=== PATIENT | male | born 1980 | race Caucasian/White ===

== ENCOUNTER 2023-05-07 19:39 | Emergency (ER) | payer OTHER ==
[2023-05-07 19:51] VITALS: BP 139/83; RESP 18; TEMP 98; BMI 28.7
[2023-05-07 21:22] LABS: BASO % 1.9 % (0-2.0); EOS % 1.6 % (0-4.5); HEMATOCRIT 41.7 % (35.4-49); HEMOGLOBIN 14.5 GM/dL (11.7-16.9); LYMPH % 52.2 % (8-40); MCH 29.9 pg (25.7-33.7); MCHC 34.8 g/dl (32.0-35.9); MEAN CELL VOLUME 85.8 fl (80-96); MEAN PLT VOLUME 7.5 fl (7.5-11.1); MONO % 11.1 % (3.8-10.2); NEUT % 33.2 % (42.8-82.8); PLATELET COUNT 271 10^3/uL (134-434); RBC 4.86 M/mm3 (4.00-5.60); WHITE BLOOD COUNT 4.3 K/mm3 (4.0-10.0)
[2023-05-07 21:31] LABS: INR 0.99 (0.83-1.09); PROTHROMBIN TIME (PATIENT) 11.5 SEC (9.7-13.0)
[2023-05-07 21:34] LABS: ACTIVATED PTT 28.5 SECONDS (25.2-36.5)
[2023-05-07 21:54] LABS: CALCIUM 8.9 mg/dL (8.5-10.1)
[2023-05-07 21:55] LABS: ALBUMIN 3.8 g/dl (3.4-5.0)
[2023-05-07 21:58] LABS: CREATININE 1.3 mg/dL (0.55-1.3)
[2023-05-07 21:59] LABS: TOT PROT 7.2 g/dl (6.4-8.2)
[2023-05-07 22:00] LABS: BILIRUBIN,TOTAL 0.2 mg/dL (0.2-1)
[2023-05-08 00:28] VITALS: PULSE 58
== END 2023-05-08 00:28 | disposition home or self-care (01) ==
LOC: JER 19:39
DX: R94.31 Abnormal electrocardiogram [ECG] [EKG] (principal)
CPT/HCPCS: 36415; 71046-TC-FY; 80053; 84484; 85025; 85610; 85730; 93005; 93010; 99285-25

== ENCOUNTER 2023-05-15 00:01 | Emergency (ER) | payer OTHER ==
[2023-05-15 00:16] VITALS: BP 163/90; PULSE 53; RESP 20; TEMP 98.1; BMI 28.7
[2023-05-15] MEDS ORDERED: SODIUM CHLORIDE 0.9% 500 ML INFUS.BAG IV ONE (00:43)
[2023-05-15] MEDS ORDERED: MAG HYDROX/AL HYDROX/SIMETH 30 ML UNIT-DOSE CUP PO ONE (00:43)
[2023-05-15] MEDS ORDERED: ACETAMINOPHEN 1000 MG/100 ML BAG IVPB ONE (00:43)
[2023-05-15] MEDS ORDERED: FAMOTIDINE 20 MG/50 ML IVPB 20 MG/50 ML MG IVPB ONE ×2 (00:43→00:55)
[2023-05-15] MEDS ORDERED: ACETAMINOPHEN INJECTION 100 ML IVPB ONE (00:50)
[2023-05-15] MEDS ORDERED: MAG HYDROX/AL HYDROX/SIMETH 30 ML UNIT-DOSE CUP ONE (00:55)
[2023-05-15 01:16] LABS: POTASSIUM 3.9 mmol/L (3.5-5.1)
[2023-05-15 01:18] LABS: ALBUMIN 4.2 g/dl (3.4-5.0); BLOOD UREA NITROGEN 18.2 mg/dL (7-18); CALCIUM 9.3 mg/dL (8.5-10.1); MAGNESIUM 2.1 mg/dL (1.8-2.4)
[2023-05-15 01:21] LABS: CREATININE 1.3 mg/dL (0.55-1.3)
[2023-05-15 01:22] LABS: TOT PROT 7.6 g/dl (6.4-8.2)
[2023-05-15 01:24] LABS: BILIRUBIN,TOTAL 0.2 mg/dL (0.2-1)
[2023-05-15 02:19] LABS: BASO % 0.5 % (0-2.0); EOS % 0.2 % (0-4.5); HEMATOCRIT 40.5 % (35.4-49); HEMOGLOBIN 13.9 GM/dL (11.7-16.9); LYMPH % 15.8 % (8-40); MCH 29.4 pg (25.7-33.7); MCHC 34.2 g/dl (32.0-35.9); MEAN PLT VOLUME 7.7 fl (7.5-11.1); MONO % 2.9 % (3.8-10.2); NEUT % 80.6 % (42.8-82.8); PLATELET COUNT 293 10^3/uL (134-434); RBC 4.71 M/mm3 (4.00-5.60); RDW 12.7 % (11.9-15.9); WHITE BLOOD COUNT 10.7 K/mm3 (4.0-10.0)
== END 2023-05-15 03:03 | disposition home or self-care (01) ==
LOC: JER 00:01
PROC: 3E033GC Introduction of Other Therapeutic Substance into Peripheral Vein, Percutaneous Approach (ICD-10-PCS; principal; 2023-05-15)
PROC: 3E033GC Introduction of Other Therapeutic Substance into Peripheral Vein, Percutaneous Approach (ICD-10-PCS; 2023-05-15)
DX: R07.9 Chest pain, unspecified (principal)
CPT/HCPCS: 36415; 71046-TC-FY; 80053; 83735; 84484; 85025; 93005; 93010; 99285-25